=== PATIENT | male | born 1970 | race Caucasian/White ===

== ENCOUNTER 2016-04-06 17:53 | Observation (INO) | payer OTHER ==
[~2016-04-06] VITALS: Ht 167.6 cm; Wt 106.1 kg
[2016-04-06 18:36] LABS: HEMATOCRIT 41.9 % (38.0-50.0); MCH 31.2 PG (29.0-34.0); MCHC 36.8 G/DL (30.0-36.0); MCV 84.8 FL (86-99); MEAN PLAT.VOLUME 8.5 uM^3 (9.0-12.4); PLATELET COUNT 270 K/uL (156-360); RBC DIS.WIDTH-CV 11.9 % (11.8-14.6); RBC DIS.WIDTH-SD 35.8 % (39-53); RED BLOOD COUNT 4.94 M/uL (4.00-5.50); WHITE BLOOD COUNT 7.9 K/uL (4.1-10.2)
[2016-04-06 18:48] LABS: CHLORIDE 102 mEq/L (99-109); SODIUM 139 mEq/L (136-147)
[2016-04-06 18:50] LABS: GLUCOSE 108 mg/dL (70-99)
[2016-04-06 18:51] LABS: ANION GAP 12 MEQ/L (2-14)
[2016-04-06 18:53] LABS: GFR ESTIMATE (CALCULATED) > 59 mL/min/
[2016-04-06 18:54] LABS: UREA NITROGEN (BUN) 13 mg/dL (9-23)
[2016-04-06 18:58] LABS: TROP-I INTERPRETATION NEGATIVE; TROPONIN-I < 0.01 ng/mL (0.0-0.30)
[2016-04-06] MEDS ORDERED: OXYCODONE-APAP1 EAC6 PO (20:02)
[2016-04-06 21:06] LABS: ADD MIUA? NO; BILIRUBIN NEGATIVE; BLOOD NEGATIVE; COLOR YELLOW ((YELLOW)); GLUCOSE (STRIP) NEGATIVE; KETONES NEGATIVE; LEUKOCYTES NEGATIVE; NITRITE NEGATIVE; PH, URINE 6.5 (5-8); PROTEIN (STRIP) NEGATIVE; SPECIFIC GRAVITY 1.014 (1.000-1.030); UCUL ADDED? NO; UROBILINOGEN 0.2 MG/DL (0.2-1.0)
[2016-04-06 21:16] LABS: TROP-I INTERPRETATION NEGATIVE; TROPONIN-I 0.01 ng/mL (0.0-0.30)
[2016-04-06] MEDS ORDERED: PROTONIX40 MG PO (22:34)
[2016-04-06] MEDS ORDERED: ADVIL,NUPRIN,M200 MG PO (22:35)
[2016-04-06] MEDS ORDERED: NEURONTIN800 MG PO (22:35)
[2016-04-07 01:52] VITALS: BP 139/94
[2016-04-07 04:19] VITALS: BP 130/71
[2016-04-07 09:00] VITALS: BP 133/77
[2016-04-07 09:57] LABS: TROP-I INTERPRETATION NEGATIVE; TROPONIN-I < 0.01 ng/mL (0.0-0.30)
[2016-04-07 09:59] LABS: HDL CHOLESTEROL 30 MG/DL (Desirable>=40); NON-HDL CHOLESTEROL 200 mg/dL (Desirable<160); TOTAL CHOLESTEROL 230 mg/dL (Desirable<200); TRIGLYCERIDES 442 MG/DL (Normal: <150)
[2016-04-07] MEDS ORDERED: ASPIR-LOW81 MG PO (10:00)
[2016-04-07] MEDS ORDERED: LISINOPRIL5 MG PO (10:00)
[2016-04-07] MEDS ORDERED: PRAVASTATIN SOD40 MG PO (10:46)
== END 2016-04-07 10:53 | disposition home or self-care (01) ==
LOC: EME 17:53 → EDOF 22:31 → 4EAST 22:31
PROVIDERS: Physician Assistant Medical
DX: R07.9 Chest pain, unspecified (principal); R94.31 Abnormal electrocardiogram [ECG] [EKG]; I10 Essential (primary) hypertension; E78.5 Hyperlipidemia, unspecified; R06.02 Shortness of breath; R61 Generalized hyperhidrosis; R53.83 Other fatigue; F17.220 Nicotine dependence, chewing tobacco, uncomplicated; K21.9 Gastro-esophageal reflux disease without esophagitis; G89.29 Other chronic pain; Z82.49 Family history of ischemic heart disease and other diseases of the circulatory system; Z86.19 Personal history of other infectious and parasitic diseases; E66.9 Obesity, unspecified; Z68.37 Body mass index [BMI] 37.0-37.9, adult; Z87.898 Personal history of other specified conditions; Z79.891 Long term (current) use of opiate analgesic
CPT/HCPCS: 71020; 80048; 80061; 81003; 84443; 84484; 85027; 93005; 99281; 99283; G0378